=== PATIENT | female | born 1975 | race American Indian/Alaskan Native ===

== ENCOUNTER 2019-01-19 12:06 | Outpatient (CLI) | payer BC ==
--- NOTE | 2019-01-20 15:04 | Mammography Report ---
DIGITAL SCREENING MAMMOGRAM WITH CAD, 01/19/2019 INDICATION: Routine screening mammography. TECHNIQUE: Digital bilateral 2D mammography was obtained in the craniocaudal and mediolateral obliq ue projections. This examination was interpreted with the benefit of Computer-Aided Detection analysi s. COMPARISON: None available. However, she indicated that she had a previous mammogram at [facility] FINDINGS: Breast Density: The breasts are heterogeneously dense, which may obscure small masses. Bilateral asymmetries require comparison with the prior mammogram or additional imaging. No webmethods architect ural distortion or suspicious calcifications. IMPRESSION:Comparison with the previous mammogram is recommended. We will attempt to obtain a prior m ammogram for comparison. If we do not obtain a prior mammogram within 30 days, a revised report will be issued recommending a recall for additional imaging. Please be advised that the patient should not schedule an appointment for return until adequate time (at least 2 weeks) has passed for us to obtai n the prior mammogram. Follow up recommendation: Obtain prior study for comparison Category 0: Incomplete. Needs additional imaging evaluation and/or prior mammograms for comparison. A "normal" or negative report should not discourage follow up or biopsy of a clinically significant f inding. A written summary of these findings will be mailed to the patient. The patient will be entered into a mammography reporting system which will generate a reminder letter for the patient's next appointmen t at the appropriate interval. [employer] recommends yearly mammograms starting at age 40 and continuing as l sylvia as a woman is in good health. Breast MRI is recommended for women with an approximate 20-25% or greater lifetime risk of breast cancer, including women with a strong family history of breast or ova leroy cancer or who have been treated for Hodgkin's disease. Signer Name: Leo Vargas MD Signed: 01/20/2019 3:00 PM Workstation Name: [id number]
== END 2019-01-19 12:07 | disposition home or self-care (01) ==
LOC: SPVWC 12:06
PROVIDERS: ATTEND Obstetrics & Gynecology
DX: Z12.31 Encounter for screening mammogram for malignant neoplasm of breast (principal)
CPT/HCPCS: 77067